=== PATIENT | male | born 2000 ===

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

== ENCOUNTER 2024-09-10 06:27 | Day surgery (SDC) | payer OTHER ==
[2024-09-10] VITALS (9 sets, daily range): BP systolic 124–149; BP diastolic 70–99
[~2024-09-10] VITALS: Ht 175.3 cm; Wt 78.6 kg
[~2024-09-10 06:27] MED LIST: CeFAZolin Sodium 2,000 MG in NS 100 ML IV SCH; Lactated Ringer's 1,000 ML IV SCH
[2024-09-10] MEDS ORDERED: AMPDEX15CR PO (06:46)
--- NOTE | 2024-09-10 07:00 | NUR ---
AMBULATORY INTO [facility]. HISTORY AND ALLERGIES REVIEWED. LUNGS CLEAR. NPO STATUS CONFIRMED. PT MOTHER CARMINE IS RIDE HOME. PT WALLET AND PHONE GIVEN TO CARMINE. PT CLOTHING IN BELONGINGS BAG BELOW THE BED.
[2024-09-10] MEDS ORDERED: Bupivacaine 0.5% HCl 5 MG/ML 30MLVIAL ONE (07:01)
[2024-09-10] MEDS ORDERED: Midazolam HCl 1MG / ML 2ML Vial ONE (07:11)
[2024-09-10] MEDS ORDERED: FentaNYL Citrate 50 MCG/ML 2 ML Injection ONE (07:11)
[2024-09-10] MEDS ORDERED: propofoL 20 ML IV ONE (07:11)
[2024-09-10] MEDS ORDERED: Lidocaine HCl 2% 20 ML MDV ONE (07:13)
[2024-09-10] MEDS ORDERED: Rocuronium Bromide 10 MG/ML 5ML Injection IV ONE ×2 (07:13→07:44)
[2024-09-10] MEDS ORDERED: HYDROmorphone HCl/Pf 1MG SYR IV PRN (07:15)
[2024-09-10] MEDS ORDERED: FentaNYL Citrate 50 MCG/ML 2 ML Injection IV PRN ×2 (07:15)
[2024-09-10] MEDS ORDERED: Ondansetron HCl 2 MG / ML 2ML Vial IV PRN (07:15)
[2024-09-10] MEDS ORDERED: CeFAZolin Sodium 2,000 MG VIAL ONE (07:18)
[2024-09-10] MEDS ORDERED: Dexamethasone Sod Phos 10 MG/ML 1ML VIAL ONE (07:36)
[2024-09-10] MEDS ORDERED: Ondansetron HCl 2 MG / ML 2ML Vial ONE (07:36)
[2024-09-10] MEDS ORDERED: HYDROmorphone HCl/Pf 1MG SYR ONE (08:50)
[2024-09-10] MEDS ORDERED: Sugammadex Sodium 200 MG/2ML SDV (100 MG/ML) ONE (08:52)
[2024-09-10] MEDS ORDERED: Ketorolac Tromethamine 30mg Vial ONE (09:36)
[2024-09-10] MEDS ORDERED: OxyCODONE 5 mg/Acetamin 325 mg TABLET PO PRN (10:05)
--- NOTE | 2024-09-10 11:09 | NUR ---
Discharge instructions reviewed with patient. Patient verbalizes understanding. Copy given to patient to take home. Dressings c/d/i. ABD binder in place. Prescription given to mother. Patient States Post-Procedure ride home has been arranged. Discharged via wheelchair to private car for ride home.
== END 2024-09-10 11:11 | disposition home or self-care (01) ==
LOC: ORSCMMR 06:27 → ORD 07:30 → ORSCMMR 11:11
PROVIDERS: Surgery
PROC: 0WUF4JZ Supplement Abdominal Wall with Synthetic Substitute, Percutaneous Endoscopic Approach (ICD-10-PCS; principal; 2024-09-10 07:30)
PROC: 8E0W4CZ Robotic Assisted Procedure of Trunk Region, Percutaneous Endoscopic Approach (ICD-10-PCS; principal; 2024-09-10 07:30)
PROC: 3E0T3BZ Introduction of Anesthetic Agent into Peripheral Nerves and Plexi, Percutaneous Approach (ICD-10-PCS; principal; 2024-09-10 07:30)
DX: K43.6 Other and unspecified ventral hernia with obstruction, without gangrene (principal); F98.8 Other specified behavioral and emotional disorders with onset usually occurring in childhood and adolescence; Z79.899 Other long term (current) drug therapy
CPT/HCPCS: A9270; C1781; J0690; J1100; J1171; J1885; J2250; J2405; J2704; J3010; J7120